=== PATIENT | female | born 1985 | race Caucasian/White ===

== ENCOUNTER 2017-06-28 17:34 | Inpatient (IN) | payer OTHER ==
[~2017-06-28] VITALS: Ht 167.6 cm; Wt 60.8 kg
--- NOTE | 2017-06-28 18:57 | ED PSYCHIATRIC COMPLAINT ---
History of Present Illness General Chief Complaint: ETOH/Drug Related Complaint Stated Complaint: ETOH AND POSSIBLE XANAX OVERDOSE Source: patient Exam Limitations: no limitations Vital Signs & Intake/Output Vital Signs & Intake/Output Vital Signs Date Time Temp Pulse Resp B/P B/P Pulse O2 O2 Flow FiO2 Mean Ox Delivery Rate 07/01 0642 98.2 60 20 138/74 99 Room Air 06/30 2135 98.7 63 20 140/84 98 Room Air 06/30 2107 63 140/84 06/30 1501 98.8 78 20 118/78 95 Room Air ED Intake and Output 07/01 0000 06/30 1200 Intake Total 1680 Output Total Balance 1680 Intake, IV 280 Intake, Oral 1400 Number 0 Bowel Movements Triage Note: 32 YEAR OLD FEMALE TO ER WITH HER PARENTS, PT NOTED TO BE LETHARGIC UNABLE TO KEEP HER EYES OPEN, SPEECH SLURRED, MOM STATES THAT PT AND HER WERE GOING TO VISIT FAMILY WHEN PT STARTED TO SLUR HER WORDS AND NOT ACTING RIGHT, PT HAS HISTORY OF DEPRESSION, DENIES SI/HI PER PARENTS. PT ADMITS TO XANAX USE TODAY AND MOM STATES THAT PT IS AN ALCHOLIC. PT RECENTLY MOVED DOWN FROM [place] DUE TO DIVORCE Triage Nurses Notes Reviewed? yes Onset: Abrupt Duration: hour(s): Timing: single episode today Severity: moderate, severe : No Patient currently breastfeeds: No HPI: 32-year-old female comes into emergency room by mom and dad after being intoxicated. Mom and dad report that the patient recently went through a divorce. She moved back in to their house April this past year. She was living in [place] previously. She has a history of EtOH abuse but has been increased significantly recently according to family. She reportedly drank alcohol and took some Xanax today. Mom had asked her if she wanted to go to their cousin's house with her. When she was in the car suddenly she became very confused and was slurring her words. She denies any suicidal or homicidal ideation. She has no previous attempts of suicide. Mom and dad report that she did not do this on purpose. They report that she has been more depressed recently. (Krzysztof Castro) Allergies Coded Allergies: sulfamethoxazole (From BACTRIM) (Intermediate, red rash 06/29/17) trimethoprim (From BACTRIM) (Intermediate, red rash 06/29/17) Reconcile Medications Escitalopram Oxalate 10 MG TABLET 1 TAB PO DAILY ANXIETY (Reported) (Holly ROWAN,Farideh) Past History Travel History Traveled to [place] past 21 day No Medical History Any Pertinent Medical History? 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 No (Krzysztof Castro) Review of Systems Review of Systems Constitutional: Reports: no symptoms. EENTM: Reports: no symptoms. Respiratory: Reports: no symptoms. Cardiovascular: Reports: no symptoms. GI: Reports: no symptoms. Genitourinary: Reports: no symptoms. Musculoskeletal: Reports: no symptoms. Skin: Reports: no symptoms. Neurological/Psychological: Reports: see HPI. Hematologic/Endocrine: Reports: no symptoms. Immunologic/Allergic: Reports: no symptoms. All Other Systems: Reviewed and Negative (Krzysztof Castro) Physical Exam Physical Exam General Appearance: sedated, mild distress, intoxicated Head: atraumatic Eyes: Bilateral: normal appearance. Ears, Nose, Throat: normal ENT inspection, hearing grossly normal Neck: normal inspection Respiratory: no respiratory distress Cardiovascular: regular rate/rhythm Extremities: normal range of motion Neurological/Psychiatric: depressed affect, arousable Appearance/Memory/Insight: disheveled Behavoir/Eye Contact/Speech: cooperative Thoughts/Hallucinations: no apparent hallucination Skin: intact, normal color, warm/dry SAD PERSONS Done? patient not suicidal (Krzysztof Castro) Progress Differential Diagnosis: dementia, drug intoxication, drug overdose, drug withdrawal, electrolyte abnormality, depression, anxiety, bipolar, borderline personality, Plan of Care: Orders Procedure Date/time Status CBC WITHOUT DIFFERENTIAL 07/01 599 Complete BASIC ELECTROLYTES PLUS BUN&CR 07/01 06 Complete SOCIAL WORK CONSULT 06/30 UNK Active Current Medications Sig/Louie Start time Last Medication Dose Stop Time Status Admin Lorazepam 1.5 MG Q6 07/01 1200 AC (Ativan) Cyanocobalamin 1,000 MCG DAILY 06/30 1752 AC 07/01 (Vitamin B12) 0831 Multivitamins 1 TAB DAILY 06/30 1056 AC 07/01 (Theragran Vitamins) 0831 Enoxaparin Sodium 40 MG DAILY 06/30 1000 AC 07/01 (Lovenox) 0834 Folic Acid 1 MG DAILY 06/30 1000 AC 07/01 (Folic Acid) 0831 Thiamine HCl 100 MG DAILY 06/30 1000 AC 07/01 (Vitamin B1) 0834 Acetaminophen 650 MG Q6P PRN 06/29 2345 AC 07/01 (Tylenol) 0833 Lorazepam 0 Q1P PRN 06/29 2245 AC 06/30 (Ativan) 2123 Laboratory Tests 07/01/17 0622: Anion Gap 10, Estimated GFR > 60, BUN/Creatinine Ratio 16.0, CBC w Diff NO MAN DIFF REQ, RBC 3.43 L, MCV 100.5 H, MCH 34.6 H, RDW 12.6, MPV 7.4, Gran % 65.0 , Lymphocytes % 22.0, Monocytes % 11.2 H, Eosinophils % 1.4, Basophils % 0.4, Absolute Granulocytes 2.5, Absolute Lymphocytes 0.8 L, Absolute Monocytes 0.4, Absolute Eosinophils 0.1, Absolute Basophils 0, PUBS MCHC 34.4 9:04 PM [facility] ALCOHOL WITHDRAWAL. (Farideh Barrera MD) Hand-Off Endorsed To: Ghanshyam Eric MD Pending: other (clically sober, re-evaluation) (Krzysztof Castro) Comments: 06/29/2017 7:30:31 AM patient had an uneventful emergency department stay overnight. Patient signed out to Dr. Patterson. Crisis evaluation pending as the patient has requested evaluation due to SI. (Ghanshyam Eric MD) Hand-Off Endorsed To: Farideh Barrera MD Endorsed Time: 1500 Pending: consult (crisis for SI concerns of mom), other (CIWA) (Josh Patterson MD) Departure Departure Disposition: STILL A PATIENT Condition: Stable Clinical Impression Primary Impression: ETOH abuse Referrals: Navya Noel MD (PCP/Family) Departure Forms: Customer Survey General Discharge Information (Krzysztof Castro) Departure Time of Disposition: 2118 Admission Note Spoke With: Gerard MD,Sitalakshmi Documentation of Exam: Documentation of any treatments & extenuating circumstances including Concerns Regarding Discharge (functional status, medication knowledge or non-compliance, living conditions, etc.) that warrant an admission rather than observation: [ CIWA MONITORING, ATIVAN TAPER, SEIZURE PRECAUTIONS, CRISIS CONSULTATION FOLLOW THROUGH ON MEDICAL FLOORS, COUNSELLING FOR ILLICIT SUBSTANCE ABUSE] (Holly ROWAN,[facility])
[2017-06-28 18:59] LABS: ABSOLUTE BASOPHIL COUNT 0 /CUMM (0.0-0.2); ABSOLUTE EOSINOPHIL COUNT 0.1 /CUMM (0.0-0.7); ABSOLUTE GRANULOCYTE CT 1.7 /CUMM (1.4-6.5); ABSOLUTE LYMPH COUNT 2.1 /CUMM (1.2-3.4); ABSOLUTE MONOCYTE COUNT 0.7 /CUMM (0.10-0.60); EOSINOPHIL % 1.3 % (0-5); GRANULOCYTE % 37.1 % (42.2-75.2); HEMATOCRIT 39.6 % (37-47); MEAN CORPUSCULAR HGB 34.3 PG (27.0-31.0); MEAN CORPUSCULAR HGB CONC 34.3 G/DL (33.0-37.0); MEAN PLATELET VOLUME 6.5 FL (7.4-10.4); PLATELET COUNT 315 /CUMM (130-400); RBC DISTRIBUTION WIDTH 12.9 % (11.5-14.5); RED BLOOD CELL CT 3.96 /CUMM (4.20-5.40); WHITE BLOOD CELL COUNT 4.5 /CUMM (4.8-10.8)
[2017-06-29] VITALS (7 sets, daily range): BP systolic 103–135; BP diastolic 63–93
--- NOTE | 2017-06-29 17:49 | ED PSYCH CRISIS CONSULTATION ---
Crisis Consult Basic Assessment Date of Consult: 06/29/17 Responsible Person/Accompanied By: Brought in by parents Insurance Authorization: Insurance #1: Insurance name: [employer] Phone number: Policy number: [id number] Group number: Authorization number: ED Provider: Patient's ED Provider: Farideh Barrera MD Primary Care Physician: Patient's PCP: Navya Noel MD PCP's Current Psychiatrist: None Chief Complaint: ETOH/Drug Related Complaint Patient's Quote: "Alcohol, drinking too much." Present Illness: The patient is a 32 year old, , female presenting to the ED intoxicated. The patient was not able to be evaluated last evening, as her BAL was .585. She was held over and evaluated this afternoon, after she was breathalyzed and she was appropriate for evaluation. The patient reports that she has a problem with alcohol and drank more yesterday, however she is not clear why. She was 3 months ago, after being for 7 years. She states that she got in [place] and moved to [place] in April of 2015, because that is where her was from. The patient reports that she was lonely and not working while in [place] and her drinking increased. She states that she moved back to [place] with her parents (about 2-3 months ago) and has been trying to find work. 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 She states that her parents have been financially supporting her. She reports that she has been depressed and anxious, rating his depression a 6 out of 10, 10 being most severe and her anxiety an 8 or 9 out of 10, 10 being the most severe. The patient denies any current or history of SI / HI / AH / VH. She reports that she was in treatment for anxiety, in [place], however did not obtain a provider, while she was living in [place]. She denies any history of trauma or abuse. She reports a distant history of alcohol abuse, for which she received treatment at [facility] , 13 years ago. She states that until she moved to [place] in 2014 she only drank on the weekends. She states that for the last year she has been drinking "4 vodka drinks daily." She also admits to using Cannabis " a few times a week," Suboxone ( not prescribed) and Xanax (0.5 mg daily, not prescribed). She states that she wants to stop drinking and is willing to be admitted for a medical detox. met with her mother, Tamiko Hughes ([phone]), for collateral information. Tamiko reports that the patient has a "drinking problem." Tamiko reports that the patient has been living with them since May 05, 2017 and that they have discussed her excess drinking. Tamiko states that she believed that the patient had stopped drinking, however it is clear that she was hiding it. Tamiko states that the patient has made 1 suicidal statement, about 2 months ago, when she was still living in [place]. Tamiko reports the patient made a comment about driving her car off the road. Tamiko states that the patient has not made any suicidal statements since and she is not concerned about her hurting herself or others. Liz states that there are other family members that have substance abuse issues. Tamiko is very concerned about the patients drinking and would like her to get into treatment. Patient's Address: [address] [place] [address] Other Phone Number: Who Do You Live With? 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 Physical Limitations (Interventions): The patient does appear to have some symptoms of withdrawal- discussed with Dr. Barrera and [facility] Psychiatric Treatment History Psych Treatment Psychiatric Treatment Yes Inpatient Treatment No Outpatient Treatment Yes Location of Treatment OP psychiatrist in [place] Reason for Treatment anxiety and depression Dates of Treatment Unclear Response to Treatment The patient states that it was helpful until she moved and did not find a new provider. Diagnosis by History: N/A Substance Use/Abuse History Drug Use/Abuse 1 Substances Used/Abused Yes Substance Used/Abused Alcohol First Use 14 years old Last Used Yesterday; 06/28/2016 How much used/taken "4 vodka drinks" How often Daily For how long 1 year Route of use oral Drug Use/Abuse 2 Substances Used/Abused Yes Substance Used/Abused Marijuana First Use Unclear Last Used "2 days ago." How much used/taken Unclear How often " a few times a week." For how long unclear Route of use inhalation Drug Use/Abuse 3 Substances Used/Abused Yes Substance Used/Abused Benzodiazepines (Xanax) First Use Unclear Last Used Unclear How much used/taken "0.5 mg" How often Daily For how long Unclear Substance Abuse Treatment Substance Abuse Treatment Past Substance Abuse [place] Yes Inpatient Treatment No Outpatient Treatment Yes Location of Treatment [facility] Reason for Treatment alcohol abuse Dates of Treatment 2012 Response to Treatment She states that she was able to control her drinking and only drink on the weekends, up until she moved to [place]. Comments: She does report taking Suboxone that is not prescribed for her. Current Mental Status Mental Status Orientation: Person, Place, Situation Affect: Anxious Speech: WNL Neuro-vegetative: WNL Appearance Appearance- Dress/Hygiene: The patient was sitting in the chair, in hospital attire, unkempt and disheveled. She appeared to be tremulous throughout the evaluation. Behaviors Thought Process: WNL Thought Content: WNL Memory: WNL Insight: Fair SI/HI Risk Assessment Past Suicidal Ideation/Attempts Yes (Per patients mother) Current Suicidal Ideation/Att No (Pt. denies) Past Homicidal Ideation/Att: No (Pt. denies) Current Homicidal Ideation/Attempts No (Pt. denies) Degree of Intent: None Danger To: N/A Risk Factors: high anxiety/distress, substance abuse Lethality Ratin PTSD Checklist PTSD Done? patient declined (Denies trauma and abuse hx.) ED Management Sitter: Yes Restraints: No DSM5/PS Stressors/Medical Prob Diagnosis' (DSM 5, Stressors, Medical): F32.9 Unspecified Depressive Disorder F41.9 Unspecified Anxiety Disorder F10.20 Alcohol Use Disorder, Severe F12.20 Cannabis Use Disorder F13.20 Sedative, Hypnotic and Anxiolytic related Disorder- Xanax Medical: Unremarkable Stressors: Recent Divorce, unemployment, financial Current GAF: 30 Comments: N/A Departure Disposition Psych Medical Clearance Date: 06/29/17 Medically Cleared at: 1645 Time Started: 1700 Time Ended: 1745 Psychiatrist Consulted: Dr. Butler Date Disposition Established: 06/29/17 Time Disposition Established: 1999 Plan for Disposition - Modality: Medical Admission (Detox) Facility: [facility] Contact: N/A Telephone: N/A Rationale for Disposition: The patient presented to the ED intoxicated. She does report some anxiety and depression. She denies any current SI / HI / AH / VH. She does want to stop drinking and is agreeable to a medical admission for detox. Case discussed with Dr. Butler and she is in agreement with a medical admission for detox. Dr. Butler recommends a psychiatric consult, once she is admitted. Dr. Butler states that if the patient wants to leave AMA, she should not be allowed to leave, until it is discussed with her inpatient provider. Additional Instructions: N/A Referrals Navya Noel MD (PCP/Family)
[2017-06-30] VITALS: BP 120/62
--- NOTE | 2017-06-30 00:37 | History & Physical ---
Gen Krishnachapisanderson 06/30/17 0037: General Information and HPI MD Statement: I have seen and personally examined MARCIA RENDON and documented this H&P. The patient is a 32 year old F who presented with a patient stated chief complaint of alcohol intoxication Source of Information: patient Exam Limitations: no limitations History of Present Illness: Ms Rendon is a 32 year old woman w/ a PMHx of opioid abuse on prescribed Suboxone in the past, anxiety, depression was brought in by her parents when she was found to be intoxicated and had slurred speech on 06/28/2016. Blood alcohol level was found to be 585 MG/DL at the time of presentation. She has been drinking alcohol since the age of 14 years, and became increasingly dependent on alcohol use recently. She drinks approximately 4-5 drinks of vodka per day, and the last drink was the day of admission. After being for 7 years, which ended recently she started drinking more alcohol in despair. She complained of increasing tremors, and anxiety in the recent past, which she identifies them as limiting factors for an active work life. She was never admitted to hospital for alcohol detox program, or had any withdrawal seizures, nor was intubated in the past. She reported to have been in a alcohol rehabilitation program. Reported vague abdominal discomfort in the suprapubic area, but did not have any dysuria or back pain. She did not have any shortness of breath, palpitations, or chest pain. No tim, brbpr. No SI/HI. She also had chronic opioid abuse many years ago, after which she was on prescribed Suboxone while she was in [place] around 2016, and has been using leftover medications up until recently. She also uses Macrobid for chronic UTI. She currently lives with her parents in [place] after she was . Allergies/Medications Allergies: Coded Allergies: sulfamethoxazole (From BACTRIM) (Intermediate, red rash 06/29/17) trimethoprim (From BACTRIM) (Intermediate, red rash 06/29/17) Home Med list Escitalopram Oxalate 10 MG TABLET 1 TAB PO DAILY ANXIETY (Reported) Compliance With Home Meds: UNKNOWN Past History Travel History Traveled to [place] past 21 day No Medical History Blood Transfusion Hx: No Neurological: NONE EENT: NONE Cardiovascular: NONE Respiratory: NONE Gastrointestinal: NONE Hepatic: NONE Renal: NONE Musculoskeletal: NONE Psychiatric: depression Endocrine: NONE Blood Disorders: NONE Cancer(s): NONE SENIOR QA TESTER/Reproductive: NONE Isolation History: Standard Surgical History Surgical History: non-contributory Past Family/Social History Family History Relations & Conditions if any Relation not specified for: *No pertinent family history Psychosocial History Smoking Status: Current Everyday Smoker ETOH Use: alcoholic Illicit Drug Use: denies illicit drug use Functional Ability ADLs Independent: dressing, eating, toileting, bathing. Ambulation: independent IADLs Unknown: shopping, housework, finances, food prep, telephone, transportation, medication admin. 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 Denies: chills, fever. EENTM: Denies: blurred vision. Cardiovascular: Denies: chest pain. Respiratory: Denies: cough, short of breath. GI: Denies: abdominal pain, melena, bloody stool. Genitourinary: Denies: dysuria. Musculoskeletal: Denies: back pain. Skin: Denies: change in skin color. Neurological/Psychological: Denies: anxiety. Hematologic/Endocrine: Denies: bruising. Exam & Diagnostic Data Last 24 Hrs of Vital Signs/I&O Vital Signs Date Time Temp Pulse Resp B/P B/P Pulse O2 O2 Flow FiO2 Mean Ox Delivery Rate 06/30 0054 98.1 80 18 120/62 97 Room Air 06/30 0000 98.1 80 18 120/62 06/29 2302 97.6 84 18 122/63 / 2301 97.6 84 18 122/63 97 Room Air Room Air 06/29 2133 97.5 86 18 126/73 97 Room Air Room Air 06/29 2132 97.5 86 18 126/73 / 1930 98.8 86 18 126/84 98 Room Air Room Air 06/29 1929 98.8 86 18 126/84 / 1711 93 18 135/76 / 1631 98.5 93 20 135/76 97 Room Air 06/29 1447 99.0 88 20 122/79 96 Room Air 06/29 1241 97.0 82 16 103/66 /02 1231 98.4 82 18 103/66 97 Room Air 06/29 1036 98.0 70 18 100/56 98 Room Air 06/29 0911 97.4 84 18 120/93 96 Room Air 06/29 0910 97.4 84 18 120/93 / 0757 98.0 84 18 100/62 98 Room Air Physical Exam General Appearance Alert, Oriented X3, Cooperative, No Acute Distress Skin No Rashes, No Breakdown Skin Temp/Moisture Exam: Warm/Dry Sepsis Skin Exam (color): Normal for Ethnicity, no spider angimata HEENT Atraumatic, PERRLA, EOMI Neck Supple, No JVD Lymphatic Cervical nl Cardiovascular Regular Rate, Normal S1, Normal S2 Lungs Clear to Auscultation, Normal Air Movement Abdomen Normal Bowel Sounds, Soft, No Tenderness Neurological Normal Gait, Normal Speech, Strength at 5/5 X4 Ext, Normal Tone, Sensation Intact, Cranial Nerves 3-12 NL, Reflexes 2+, tremors + Extremities No Clubbing, No Cyanosis, No Edema, Normal Pulses Vascular Pulses Symmetrical Last 24 Hrs of Labs/Markus: 06/29/17 1851: Anion Gap 9, Estimated GFR > 60, BUN/Creatinine Ratio 23.0, Glucose 158 H, Calcium 9.0, Total Bilirubin 0.7, AST 15 L, ALT 26, Alkaline Phosphatase 69, Troponin I < 0.01, Total Protein 6.7, Albumin 3.8, Globulin 2.9, Albumin/ Globulin Ratio 1.3, CBC w Diff NO MAN DIFF REQ, RBC 3.90 L, MCV 86.7, MCH 28.5, RDW 15.6 H, MPV 10.3, Gran % 54.3, Lymphocytes % 24.4, Monocytes % 15.3 H, Eosinophils % 5.6 H, Basophils % 0.4, Absolute Granulocytes 1.8, Absolute Lymphocytes 0.8 L, Absolute Monocytes 0.5, Absolute Eosinophils 0.2, Absolute Basophils 0, PUBS MCHC 32.9 L Assessment/Plan Assessment: Ms Rendon is a 32 year old woman w/ a PMHx of opioid abuse on prescribed Suboxone in the past, anxiety, depression, alcohol abuse is being admitted to general medicine floor for alcohol detox. At the time of [id number] 97.2 pulse rate 82, respiration 20, blood pressure 129/82, pulse ox 92% on room air. On examination, she was comfortable however she was very anxious and had tremors likely from alcohol withdrawal. Pertinent lab findings: WBC 4.5 (leukopenia), hemoglobin 13.6, MCV 102 ( macrocytosis), platelets 315. Electrolytes-sodium 146, potassium 4.4, anion gap 17 (likely from alcohol), BUN 12, serum creatinine 0.5. AST 110, ALT 47 ( consistent with alcohol use, deficiency of PPO4), alkaline phosphatase 97, albumin 4.5, INR was not checked. Urine test was negative. Urine toxicology did not reveal any opiates, methadone, benzodiazepines, cocaine , cannabis. She did have elevated levels of serum alcohol 585 MG/DL. She is being admitted for alcohol detox, and needs to be on it her closely for severe alcohol withdrawal symptoms using CINM. She also has several mental health issues, for which psychiatry has been contacted, who would make further recommendations. At this time, she has laboratory findings consistent with alcohol use for which she need to be monitored, and have a discussion about quitting alcohol. She does not have any signs of liver cirrhosis, or variceal bleeding at this time, nor is there any need for working up. If she has any worsening liver function, would pursue imaging, otherwise would treat it as alcohol detox. Plan: #1 alcohol detox- Admit the patient to general medicine floor, and monitor closely for withdrawal symptoms. Since she has heavy alcohol use, and there is a possibility of severe withdrawls in the next 24-48hrs. She should be treated w/ ativan as per [facility] protocol which would enable the treatment w/ iv ativan as needed. She should also be treated w/ scheduled doses of ativan 2mg q6, which should be tapered in the next 24-48 hrs. #2 nutrition- She has to be started on banana bag, and soon be transitioned to multivitamin. She should also get folate, and vitamin B12 for her macrocytosis. She doesnt have any other causes that can cause macrocytosis, in her case. #3 Mental health- She doenst have any SI/HI at this time. She would benefit from a formal psychiatry consultation, to see if she would need any medication. Till that time , her meds are on hold. #4 Opiate abuse- Watch for any withdrawl symptoms. Utox did not have any opiates. Housekeeping- 1. DVT PPx- sc lovenox 2. Full code 3. Regular diet. 4. Med rec- done. 5. Pain pathway- tylenol for pain. Avoid opiates, and NSAIDs. As Ranked By This Provider Problem List: 1. ETOH abuse Core Measures/Misc (03/14) Acute Coronary Syndrome ACS Diagnosis: No Congestive Heart Failure Congestive Heart Failure Diagnosis No Cerebrovascular Accident CVA/TIA Diagnosis: No VTE (View Protocol) VTE Risk Factors No risk factors No Mechanical VTE Prophylaxis d/t N/A MechProphylax Ordered No VTE Pharm Prophylaxis d/t NA PharmProphylax ordered Sepsis (View protocol) Sepsis Present: No Gerard ROWAN, [facility] 06/30/17 0726: Attending MD Review Statement Attending Statement Attending MD Statement: examined this patient, discuss w/resident/PA/FIBERGLASS FABRICATOR, agreed w/resident/PA/FIBERGLASS FABRICATOR, reviewed images, amended to note Attending Assessment/Plan: 32 yo F with h/o alcohol abuse, opiate dependence previously on suboxone, anxiety, depression, was brought in by family in an intoxicated state. She was found to be confused and had slurring of speech. Her alcohol level was noted to be 585 on ER arrival on 06/28/17. Drinking since age 14, 4-5 drinks of vodka daily. Was living with at [place] but recently got and now lives with parents. No SI or HI. Denies previous DT's or withdrawal seizures. She used to follow up with Dr. Valdes ([place]) for opiate dependence and was being prescribed suboxone. She reports having quite a few left from prior prescriptions and has been using these recently. Denies any other drug use. Vitals stable. Exam: tremulous, dry mucous membranes, otherwise unremarkable. Labs: macrocytic anemia with WBC 4.5, Na 146, AG 17, AST 110, Utox negative. Alcohol 585. Assessment and plan: 1. Alcohol withdrawal 2. Depression, denies SI 3. Opiate dependence previously on suboxone 4. Chronic UTI - Admit to general medicine - CIWA protocol - IV ativan per CIWA - PO ativan 2 mg Q6 - Banana bag MVI, thiamine, folic acid - Psych and social work consult - Check TSH, free T4, B12, folic acid - Not sure if she really needs to be on macrobid hold for now - Check urinalysis - Repeat BEP today - Resume anti-depressant medication based on Psych recs - patient was on lexapro. - Please repeat EKG. DVT ppx Lovenox. Full code.
[2017-06-30] MEDS ORDERED: ESCITALOPRAM OX10 MG PO (00:53)
[2017-06-30 00:54] VITALS: BP 120/62
[2017-06-30 06:38] VITALS: BP 120/60
--- NOTE | 2017-06-30 07:27 | Admission Certification ---
Admission Certification Certification Statement - As attending physician, I certify that at the time of - admission, based on clinical presentation, severity of - symptoms, need for further diagnostic testing and - therapeutic interventions, and risk of adverse outcomes - without in-hospital treatment, in my clinical assessment, - this patient requires an acute hospital stay for a minimum - of two nights or longer. I have also considered psychsocial - factors such as support system, advanced age, financial - issues, cognitive issues, and failed out-patient treatments, - past re-admission history, safety of patient, and lack of - compliance as applicable. Specific rationale supporting this admission is: Alcohol withdrawal
[2017-06-30 08:37] LABS: ABSOLUTE BASOPHIL COUNT 0 /CUMM (0.0-0.2); ABSOLUTE EOSINOPHIL COUNT 0.1 /CUMM (0.0-0.7); ABSOLUTE GRANULOCYTE CT 1.9 /CUMM (1.4-6.5); ABSOLUTE MONOCYTE COUNT 0.4 /CUMM (0.10-0.60); BASOPHIL % 0.6 % (0.0-2.0); GRANULOCYTE % 54.3 % (42.2-75.2); MEAN CORPUSCULAR HGB 34.8 PG (27.0-31.0); MEAN CORPUSCULAR HGB CONC 34.7 G/DL (33.0-37.0); MEAN CORPUSCULAR VOLUME 100.1 FL (81.0-99.0); MEAN PLATELET VOLUME 6.9 FL (7.4-10.4); PLATELET COUNT 224 /CUMM (130-400); RBC DISTRIBUTION WIDTH 13.2 % (11.5-14.5); RED BLOOD CELL CT 3.43 /CUMM (4.20-5.40); WHITE BLOOD CELL COUNT 3.4 /CUMM (4.8-10.8)
[2017-06-30 08:43] LABS: HEMATOCRIT 34.4 % (37-47)
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
[2017-06-30 15:01] VITALS: BP 118/78
[2017-06-30 21:07] VITALS: BP 140/84
[2017-06-30 21:35] VITALS: BP 140/84
[2017-07-01] VITALS (7 sets, daily range): BP systolic 118–148; BP diastolic 74–86
[2017-07-01 08:17] LABS: ABSOLUTE BASOPHIL COUNT 0 /CUMM (0.0-0.2); ABSOLUTE EOSINOPHIL COUNT 0.1 /CUMM (0.0-0.7); ABSOLUTE GRANULOCYTE CT 2.5 /CUMM (1.4-6.5); ABSOLUTE LYMPH COUNT 0.8 /CUMM (1.2-3.4); ABSOLUTE MONOCYTE COUNT 0.4 /CUMM (0.10-0.60); BASOPHIL % 0.4 % (0.0-2.0); EOSINOPHIL % 1.4 % (0-5); HEMATOCRIT 34.5 % (37-47); MEAN CORPUSCULAR HGB 34.6 PG (27.0-31.0); MEAN CORPUSCULAR HGB CONC 34.4 G/DL (33.0-37.0); MEAN CORPUSCULAR VOLUME 100.5 FL (81.0-99.0); MEAN PLATELET VOLUME 7.4 FL (7.4-10.4); PLATELET COUNT 222 /CUMM (130-400); RBC DISTRIBUTION WIDTH 12.6 % (11.5-14.5); RED BLOOD CELL CT 3.43 /CUMM (4.20-5.40); WHITE BLOOD CELL COUNT 3.8 /CUMM (4.8-10.8)
--- NOTE | 2017-07-01 09:07 | PN- Att Addend ---
Attending Addendum Attending Brief Note Patient seen and examined. She still requesting Suboxone despite me counseling her at length that this has to be done on an outpatient basis. We are tapering the Ativan and today is 1.5mg every 6 and the plan will be for tomorrow 1mg every 6. Awaiting psych evaluation and will follow-up.
--- NOTE | 2017-07-01 10:48 | Cons- Psychiatry ---
Psychiatric Consult Date of Consult: 07/01/17 Reason for Consult: Alcohol use disorder History of Present Illness: 32 F presents to the ED 06/28/17 @ 1744 with her parents, with a CC of sedation due to Xanax, alcohol and Suboxone abuse. The patient recently moved from [place] after her divorce on 06/25/17, where she had lived with her ex- for approx. one year. 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 History of anxiety, treated until recently with Xanax. As of 07/01/17 @ 0823: Lorazepam 2 mg PO q 6 hours. She has received 11 mg in the last 24 hours. Last CIWA at 0000 was 2 VS @ 0642: 138/74, 60HR, 98.2 oral, 20RR, 99% RA, pain 0/10. EKG on 06/30/17 is abnormal. The patient is currently not in any distress. CT CROP OR LIVESTOCK TENANT FARMER Aware reports for the patient under her present name or her former name ( Reshma): 04/21/17 diazepam 5 mg #9 for 3 days by Raheem Bustamante ME 12/12/15 alprazolam 0.25 mg #30 for 10 days by Aissatou Arboleda CO Collateral discussion with her former Suboxone provider, Dr. Kaya Valdes, today, , with signed ANGELIQUE by the patient: She has not seen the patient in over a year since she moved to [place], and thus has no current prescriptions for the patient. She will be happy to discuss past treatment if necessary. [place] [address] [place] [address], Fax. Allergies: Coded Allergies: sulfamethoxazole (From BACTRIM) (Intermediate, red rash 06/29/17) trimethoprim (From BACTRIM) (Intermediate, red rash 06/29/17) Addendum Note Addendum PSYCHIATRY CONSULT PRACTICE NOTE DATE: August 15, 2013 MANAGING OPIATE DETOX AND WITHDRAWAL Version: 1.0 TOPIC: Managing opiate detox and withdrawal for medical and surgical inpatients; patient not currently on methadone or partial opiate agonist (buprenorphine- Naltrexone/Suboxone). Formulation: The patient presents with recent history of opiate use, such as heroin, street-obtained pharmaceuticals, and/or prescription drug abuse. There may be competing withdrawals from alcohol, benzodiazepines, amphetamines, or other substances. If the patient is currently on methadone therapy, verify current dosing with the clinic, determine if there is a taper schedule in place and continue with the out-patient plan. Monitor EKG for arrhythmia. Plan: Our goal is to minimize withdrawal signs and symptoms using the OOWS/SOWS screening tool, appropriate medication therapy and clinical judgment: * Objective Opioid Withdrawal Scale and the Subjective Opioid Withdrawal Scale ( OOWS/SOWS), as currently employed on [facility]. These scales are each on one side of a single sheet of paper (Appendix A). * Opiate detox protocol: * EKG - please monitor for arrhythmias and prolonged QTC. * Clonidine 0.1 mg PO every 4 hours as needed, if opiate withdrawal symptoms. Hold Clonidine for blood pressure less than 90 mmHg systolic, less than 60 mmHg diastolic or pulse less than 55 BPM. * Baclofen 10 mg PO every 6 hours, as needed, for muscle cramps. * Dicyclomine (Bentyl) 20 mg PO every 6 hours, as needed, for GI cramps. * Hydroxyzine (Atarax or Vistaril) 50 mg PO every 6 hours, as needed, for anxiety. * Ibuprofen 600 mg PO every 6 hours, as needed, for pain. * Multivitamin daily. * Taper benzodiazepines before discharge, or patient will be unable to start an Intensive Outpatient Psychiatry program (IOP). Past History Past Medical History Neurological: NONE EENT: NONE Cardiovascular: NONE Respiratory: NONE Gastrointestinal: NONE Hepatic: NONE Renal: NONE Musculoskeletal: NONE Psychiatric: alcohol dependence, anxiety, depression, opioid dependence, substance abuse Endocrine: NONE Blood Disorders: NONE Cancer(s): NONE SALES CONSULTANT/Reproductive: NONE Past Surgical History Surgical History: non-contributory Psychosocial History Strengths/Capabilities: The patient appears to have supportive parents. She states that she is motivated for treatment. Physical Limitations (Interventions): 07/01/17: Current opiate and alcohol withdrawal symptoms. Psychiatric Treatment History Psych Treatment Psychiatric Treatment Yes Inpatient Treatment No Outpatient Treatment Yes Location of Treatment OP psychiatrist in [place] Reason for Treatment anxiety and depression Dates of Treatment Unclear, but last visit at least one year ago, before moving to [place] Response to Treatment The patient states that it was helpful until she moved and did not find a new provider. Diagnosis: Alcohol use disorder Opiate use disorder Benzodiazepine use disorder Substance-induced mood disorder R/O HEATHER R/O MDD Risk Factors: high anxiety/distress, substance abuse Substance Use/Abuse History Drug Use/Abuse Substances Used/Abused Yes Substance Used/Abused Benzodiazepines (Xanax) First Use Unclear Last Used Unclear How much used/taken "0.5 mg" How often Daily For how long Unclear Route of use inhalation Substance Abuse Treatment Substance Abuse Treatment Past Substance Abuse TX Yes Inpatient Treatment No Outpatient Treatment Yes Location of Treatment [facility] Reason for Treatment alcohol abuse Dates of Treatment 2012. 07/01/17: She reports begin in the same program for six months when she Response to Treatment She states that she was able to control her drinking and only drink on the weekends, up until she moved to [place]. Assessment/Plan Mental Status Orientation: Person, Place, Situation Affect: Constricted Speech: WNL Neuro-vegetative: Sleep Disturbance Mental Status Exam: A+OX4 Denies AH, VH, but endorses tactile in the form of "Tinglies" on her legs. Past history of visual disturbances while drinking. Denies history of seizure, denies history of delirium tremens AEB ICU withdrawl from alcohol. She denies SI, HI or history of suicide attempt. Depression 01/04; denies helplessness, hopelessness, worthlessness, but endorses guilt feeling for drinking. She reports anxiety since she was a child, but not treated until age 15, and then with Xanax. 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 Kaya Valdes in [place]. the patient drinks 4-7 drinks of vodka daily, but the size of these drinks can range up to a Gatorade bottle. She has not seen her Suboxone provider for over a year, and has been using "leftover" drug and gettin git from her sister. She started on Lexapro from her mother's prescription, but is now being seen by her PCP for this. Lab Results: Laboratory Tests 07/01 621 Chemistry Sodium (137 - 145 mmol/L) 135 L Potassium (3.5 - 5.1 mmol/L) 3.7 Chloride (98 - 107 mmol/L) 101 Carbon Dioxide (22 - 30 mmol/L) 24 Anion Gap (5 - 16) 10 BUN (7 - 17 mg/dL) 8 Creatinine (0.5 - 1.0 mg/dL) 0.5 Estimated GFR (>60 ml/min) > 60 BUN/Creatinine Ratio (7 - 25 %) 16.0 Hematology CBC w Diff NO MAN DIFF REQ WBC (4.8 - 10.8 /CUMM) 3.8 L RBC (4.20 - 5.40 /CUMM) 3.43 L Hgb (12.0 - 16.0 G/DL) 11.9 L Hct (37 - 47 %) 34.5 L MCV (81.0 - 99.0 FL) 100.5 H MCH (27.0 - 31.0 PG) 34.6 H RDW (11.5 - 14.5 %) 12.6 Plt Count (130 - 400 /CUMM) 222 MPV (7.4 - 10.4 FL) 7.4 Gran % (42.2 - 75.2 %) 65.0 Lymphocytes % (20.5 - 51.1 %) 22.0 Monocytes % (1.7 - 9.3 %) 11.2 H Eosinophils % (0 - 5 %) 1.4 Basophils % (0.0 - 2.0 %) 0.4 Absolute Granulocytes (1.4 - 6.5 /CUMM) 2.5 Absolute Lymphocytes (1.2 - 3.4 /CUMM) 0.8 L Absolute Monocytes (0.10 - 0.60 /CUMM) 0.4 Absolute Eosinophils (0.0 - 0.7 /CUMM) 0.1 Absolute Basophils (0.0 - 0.2 /CUMM) 0 PUBS MCHC (33.0 - 37.0 G/DL) 34.4 Diffential Diagnosis: Alcohol use disorder Opiate use disorder Benzodiazepine use disorder Substance-induced mood disorder R/O HEATHER R/O MDD Impression: The patient indicates that she is willing to stop alcohol and drug use and come to an IOP level of care. She lives in [place] with her parents, and has her own car. She would also like to start in a Suboxone program; she had her last dose two days ago, but it has not been prescribed for over a year. She is currently describing anergia, chills/hot flashes, POLANCO, body aches, and could benefit from symptomatic treatment. Please see the Opiate Detox Protocol in the chart and in the Addendum section above. We will get her an IOP intake appointment for next week. She will need to safely complete her alcohol detox benzodiazepine taper. Do not discharge the patient on benzodiazepines. The patient is under stress from her divorce being final on 06/25/17, but she denies suicidal ideation. Provisional Treatment Plan: PCP and current Lexapro prescriber: Navya Noel MD, [address] [place] [address], 1. Continue the alcohol detox taper protocol with a daily reduction in total dose of no more than 20%. 2. Continue CIWA and VS monitoring for S/S of withdrawal symptoms - alcohol. 3. Please use the Opiate Withdrawal protocol in the Addenedum to help with withdrawal symptoms. We are not able to initiate Suboxone therapy at this time in the hospital. 4. We will obtain a [facility] dual track intake appt. on 07/02/16, as they are closed today. 5. Caution with visitors, as she has been sourcing Suboxone from her sister, and may have her own supply at home. 6. Continue thiamine, folic acid and MVI. 7. Please review the EKG of 06/30/17.
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
[2017-07-02] VITALS: BP 122/99; BP 140/90
[2017-07-02 02:00] VITALS: BP 134/86
[2017-07-02 08:00] VITALS: BP 108/70; BP 116/71
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
--- NOTE | 2017-07-02 08:24 | PN- Housestaff ---
PablomarLucy crawford 07/02/17 0824: Subjective Follow-up For: Opiate Withdrawal Alcohol Withdrawal Subjective: Seen and examined patient this morning. Early this morning she was quite lethargic however around noon time she became more awake and alert and was oriented and was answering appropriately. Denies chest pain, shortness of breath, headaches, auditory or visual hallucinations, abdominal pain and bowel/ bladder symptoms. Review of Systems Constitutional: Denies: chills, diaphoresis, fever, malaise, weakness, unexplained weight loss. Cardiovascular: Denies: chest pain, edema, orthopena, palpitations, peripheral edema, syncope. Respiratory: Denies: cough, hemoptysis, orthopnea, short of breath, sputum production, stridor, wheezing. Objective Last 24 Hrs of Vital Signs/I&O Vital Signs Date Time Temp Pulse Resp B/P B/P Pulse O2 O2 Flow FiO2 Mean Ox Delivery Rate 07/02 1000 50 18 07/02 0900 56 18 07/02 0800 98.6 75 20 116/71 07/02 0800 98.6 75 20 108/70 97 Room Air 07/02 0200 61 18 134/86 07/02 0036 86 20 138/103 07/02 0000 Room Air 100% 07/02 0000 71 20 122/99 07/02 0000 97.4 72 18 140/90 100 Room Air 07/01 2221 98.8 74 20 148/86 07/01 2220 98.8 74 20 148/86 97 Room Air 07/01 2114 74 125/70 /04 1950 80 18 130/84 97 Room Air 07/01 1745 98.5 64 18 118/74 07/01 1745 98.5 64 18 118/74 98 Room Air 07/01 1436 98.2 74 18 130/78 98 Room Air 07/01 1313 100 134/72 Intake & Output 07/02 1600 05 0800 07/02 0000 Intake Total 280 480 Output Total 200 200 Balance 80 280 Intake, IV 40 40 Intake, Oral 240 440 Output, Urine 200 200 Patient 134 lb Weight Physical Exam General Appearance: Alert, Oriented X3, Cooperative, No Acute Distress Cardiovascular: Regular Rate, Normal S1, Normal S2 Lungs: Clear to Auscultation, Normal Air Movement Abdomen: Normal Bowel Sounds, Soft Extremities: No Edema Current Medications: Current Medications Sig/Louie Start time Last Medication Dose Route Stop Time Status Admin Acetaminophen 650 MG Q6P PRN 06/29 2345 AC 07/01 PO 0833 Baclofen 10 MG Q6PRN PRN 07/01 1215 AC PO Clonidine 0.1 MG FOUR TIMES A DAY PRN 07/01 1215 DC 07/02 PO 0036 Cyanocobalamin 1,000 MCG DAILY 06/30 1752 AC 07/02 PO 1122 Dicyclomine HCl 20 MG 4 TIMES/DAY PRN 07/01 1215 AC PO Enoxaparin Sodium 40 MG DAILY 06/30 1000 AC 07/02 SC 1122 Folic Acid 1 MG DAILY 06/30 1000 AC 07/02 PO 1122 Haloperidol 0.5 MG DAILY PRN 07/01 1600 DC 07/02 PO 0034 Hydroxyzine HCl 50 MG Q6 PRN 07/01 1215 DC 07/02 PO 0608 Ibuprofen 600 MG Q6P PRN 07/01 1215 AC PO Lorazepam 1 MG Q8 07/03 0600 AC PO 07/03 2201 Lorazepam 2 MG Q6 07/02 1200 DC IV Lorazepam 1 MG Q6 07/02 1200 CAN IV Lorazepam 1 MG Q6 07/02 1200 AC 07/02 PO 07/03 0601 1206 Lorazepam 2 MG Q6 07/02 0600 DC 07/02 PO 0535 Lorazepam 1.5 MG Q6 07/01 1200 DC 07/01 PO 2339 Lorazepam 0 Q1P PRN 06/29 2245 AC 07/02 IV 0811 Multivitamins 1 TAB DAILY 07/02 1000 DC PO Multivitamins 1 TAB DAILY 06/30 1056 AC 07/02 PO 1122 Thiamine HCl 100 MG DAILY 06/30 1000 AC 07/02 PO 1122 Last 24 Hrs of Lab/Markus Results Last 24 Hrs of Labs/Mics: Microbiology 07/01 2329 UPPER RESP: Surveillance Culture - RECD 07/01 2329 GI: Surveillance Culture - RECD Assessment/Plan Assessment: 32 woman PMH significant for opioid use disorder, alcohol use disorder, depression, and admission for alcohol and opiate withdrawal. Was found to be extremely agitated over night and attempted to leave the hospital, was transferred to ICU for closer monitoring and possible IV Ativan drip. She did not require the Ativan drip however and this morning she is more awake and in answering questions appropriately. Problem list: #AUD: * CIWA 19, 16, 6, 0, lot calmer this afternoon * Will taper Ativan to 1 mg every 6 today, and milligram every 8 tomorrow and 1 mg every 12 on Wednesday. Anticipating discharge for her on Wednesday with instructions to take 1 Ativan Wednesday evening and her final dose Wednesday morning. * Patient has an IOP appointment July 05 at 9:30 AM * psych and social evaluation * Social work consult * Called and spoke to her mother and updated her on her status. #h/o SWTAHI: * History of opiate use disorder, states that she was on Suboxone. * Her last follow-up with Suboxone clinic was 1.5 years ago in [place]. * Should be reevaluated by a certified provider as outpatient. * Was seen by psych inpatient today who recommended a medication regimen to control her withdrawal symptoms #Depression: * We'll continue Lexapro #DVT prophylaxis * Subcutaneous Lovenox #Patient is full code Problem List: 1. ETOH abuse 2. Alcohol use disorder Pain Ratin Pain Location: NA Pain Goal: Pain 4 or less Pain Plan: current regimen Tomorrow's Labs & Rationales: none required Tiana Suresh MD 07/02/17 1141: Attending MD Review Statement Attending Statement Attending MD Statement: examined this patient, discuss w/resident/PA/PRESS TECHNICIAN, agreed w/resident/PA/PRESS TECHNICIAN, discussed with family, reviewed EMR data (avail), discussed with nursing, reviewed images Attending Assessment/Plan: Overnight events noted. Pt became aggressively more agitated and confused requiring more Ativan and was subsequently transferred to the ICU. When I saw her today with the RN and the resident present she looks markedly better than when I saw her yesterday. She is still tremulous but less than before. She is much more logical today. She feels that all of the medication is contributing to her confusion. She is making a lot more sense and understands that we have to taper the Ativan and we are going to do that over the next 24-48 hours with the plan for discharge on Wednesday. She also gave me permission to talk to her mother and update her mother on all of her conditions. At this point I think we should decrease the amount of Ativan and I've spoken to the psych COUPLING MACHINE OPERATOR about it. We'll cut her down to 1 mg every 6hrs 4 doses then 1 mg every 8 hours 3 doses and by Wednesday she'll be on 1 mg twice a day. If she is stable and is not tremulous and not confused then, the plan will be to discharge on Wednesday morning with 2 pills of Ativan - 1 she'll take on Wednesday evening and one on Wednesday morning. I've spoken to the psych COUPLING MACHINE OPERATOR we'll set up an IOP appointment for her and the resident will update her mother with all of the above.
[2017-07-02] MEDS ORDERED: ATIVAN1 M1 PO (11:59)
[2017-07-02 12:00] VITALS: BP 104/78
--- NOTE | 2017-07-02 12:01 | Patient Discharge Instructions ---
Discharge Instructions General Discharge Information You were seen/treated for: Alcohol withdrawal Special Instructions: Please follow up with your Primary care doctor within two weeks of discharge You have an appointment at the Intensive Outpatient Program (IOP) on 07/05/17, at 9:30 AM, at [address] [place] [address], . Please bring photo ID and insurance card. Acute Coronary Syndrome Inclusion Criteria At DC or during hospital stay patient has or had the following: ACS DIAGNOSIS No Discharge Core Measures Meds if any: Prescribed or Continued at Discharge Meds if any: NOT Prescribed or Continued at Discharge Congestive Heart Failure Inclusion Criteria At DC or during hospital stay patient has or had the following: CHF DIAGNOSIS No Discharge Core Measures Meds if any: Prescribed or Continued at Discharge Meds if any: NOT Prescribed or Continued at Discharge Cerebrovascular accident Inclusion Criteria At DC or during hospital stay patient has or had the following: CVA/TIA Diagnosis No Discharge Core Measures Meds if any: Prescribed or Continued at Discharge Meds if any: NOT Prescribed or Continued at Discharge Venous thromboembolism Inclusion Criteria VTE Diagnosis No VTE Type NONE VTE Confirmed by (Test) NONE Discharge Core Measures - Per Current guidelines, there needs to be overlap - treatment for the first 5 days of Warfarin therapy. - If discharged on Warfarin prior to 5 days of - overlap therapy, the patient will need to be - assessed for post discharge needs including - *Post discharge parental anticoagulation - *Warfarin and/or parental anticoagulation education - *Follow up date to check INR post discharge At least 5 days overlap therapy as Inpatient No Meds if any: Prescribed or Continued at Discharge Note: Overlap Therapy is Warfarin and Anticoagulant Meds if any: NOT Prescribed or Continued at Discharge
--- NOTE | 2017-07-02 13:45 | PN- Psychiatry ---
Assessment/Plan Impression: We were asked to see the patient again yesterday in the afternoon, when she was trying to leave [facility]. The medical staff felt that she was not psychiatrically stable, and, indeed, she wanted to leave the hospital on foot in a severe winterstorm to find her sister, who had become stuck in her car, due to heavy snowfall. Dr. Suresh, attending, felt that the patient was exhibiting irrational decision making, and ordered her to stay. The patient elected to stay to complete treatment for alcohol and opiate (Suboxone) withdrawal. Later in the evening, the patient reported visual hallucinations and was transferred to the ICU for delirium. She was observed eating toilet paper and later reported that she was in [place], per the nursing notes. We did have a discussion with Dr. Suresh, attending MD, about tapering the lorazepam, as she found the patient much improved over yesterday. When I saw the patient later this afternoon, her CIWA scores had reduced from 10 -28 overnight to 2 at 1200 today. She was not frankly delirious, denied psychotic symptoms and was not suicidal. In the 24 hours preceding 07/02/17 @ 1005, she received lorazepam 30.5 mg both PO and IV, all but 6.5 via IV. Prior to that, she received 11 mg on 06/30/17, 5 mg on 06/29/17 and 5 mg on 06/28/17. CIWA from 1200: 7-0-0-28-08-31-19-19--36-08-84-16-16 -79-3-39-6-10 VS @ 1200 104/78, 53HR, 97.8, 20RR. We feel that the reduction in lorazepam from 30.5 mg to anything less than the previous days total will put the patient at risk for a recurrence for hallucinosis, delirium tremens or seizure. I have suggested a compromise, below. Suggestion: 1. Continue lorazepam alcohol detox taper. a. The patient should re-initiate the taper at a total daily dose of 12-16 mg daily, divided, a compromise between her daily total, 11.5 mg, on 06/30-07/01/17 and the subsequent larger dosing, 30.5 mg, on 07/01-07/02/17. b. Daily reduction by approximately 20% to off. c. Consider conversion to chlordiazepoxide/Librium before discharge, which has a longer half life, reducing the possibility of a withdrawal seizure. Lorazepam 1 mg is roughly equivalent to chlordiazepoxide 25 mg. d. The patient may enter the IOP program on a benzodiazepine taper and prescribed Suboxone. This has been explained to the patient, who verbalizes understanding that she may not self-medicate. 2. Aftercare planning: a. The patient has an intake appointment at [facility] dual-track Intensive Outpatient Program (IOP) on 07/05/17, at 9:30 AM, at [address] [place] [address], . She is to bring her photo ID and insurance card. b. The patient will present at [facility] to enroll in their Suboxone program, as is not currently accepting new patients in that program. [facility] Walk-In Evaluation Hours for outpatient Suboxone program and Intensive outpatient program are on a first come, first serve basis. Wednesday-Wednesday 8:30AM-11:00AM [address] [place] [address] Information on this program was given to the patient. She thinks that her sister is currently enrolled in their care. 3. Continue CIWA and VS monitoring for S/S of alcohol withdrawal symptoms. 4. Please use the Opiate Withdrawal protocol, in the Addendum of the initial consultation note, to help with opiate withdrawal symptoms. We understand that clonidine had been stopped, due to bradycardia. 5. Please reconsult if further matters arise. Psychiatry is signing off this case. Subjective Subjective: Sleepy, arousable, oriented to person, day, month, year, president but not place. she denies current VH or TH, but regarding tactile hallucinations, states , "I'm sure there will be." She reports that she had thought that alcohol detox would be easier. Her judgement and insight are currently intact. She denies SI or HI. She states that she has "a little bit of Suboxone left at home. I've been trying for every other day, but it makes me feel so sick." Objective Last 24 Hrs of Vital Signs/I&O Vital Signs Date Time Temp Pulse Resp B/P B/P Pulse O2 O2 Flow FiO2 Mean Ox Delivery Rate 07/02 1200 97.8 53 20 104/78 01/05 1200 97.8 53 20 104/78 98 Room Air 07/02 1000 50 18 07/02 0900 56 18 07/02 0800 98.6 75 20 116/71 07/02 0800 98.6 75 20 108/70 97 Room Air 07/02 0200 61 18 134/86 / 0036 86 20 138/103 / 0000 Room Air 100% 07/02 0000 71 20 122/99 / 0000 97.4 72 18 140/90 100 Room Air 07/01 2221 98.8 74 20 148/86 07/01 2220 98.8 74 20 148/86 97 Room Air 07/01 2114 74 125/70 /04 1950 80 18 130/84 97 Room Air 07/01 1745 98.5 64 18 118/74 07/01 1745 98.5 64 18 118/74 98 Room Air 07/01 1436 98.2 74 18 130/78 98 Room Air Intake & Output 07/02 1600 07/02 0800 07/02 0000 Intake Total 280 480 Output Total 200 200 Balance 80 280 Intake, IV 40 40 Intake, Oral 240 440 Output, Urine 200 200 Patient 134 lb Weight Physical Exam: Not performed Physical Exam General Appearance: no apparent distress, Sleepy Current Medications: Current Medications Sig/Louie Start time Last Medication Dose Route Stop Time Status Admin Acetaminophen 650 MG Q6P PRN 06/29 2345 AC 07/01 PO 0833 Baclofen 10 MG Q6PRN PRN 07/01 1215 AC PO Clonidine 0.1 MG FOUR TIMES A DAY PRN 07/01 1215 DC 07/02 PO 0036 Cyanocobalamin 1,000 MCG DAILY 06/30 1752 AC 07/02 PO 1122 Dicyclomine HCl 20 MG 4 TIMES/DAY PRN 07/01 1215 AC PO Enoxaparin Sodium 40 MG DAILY 06/30 1000 AC 07/02 SC 1122 Escitalopram Oxalate 10 MG DAILY 07/02 1258 AC PO Folic Acid 1 MG DAILY 06/30 1000 AC 07/02 PO 1122 Haloperidol 0.5 MG DAILY PRN 07/01 1600 DC 07/02 PO 0034 Hydroxyzine HCl 50 MG Q6 PRN 07/01 1215 DC 07/02 PO 0608 Ibuprofen 600 MG Q6P PRN 07/01 1215 AC PO Lorazepam 1 MG Q8 07/03 0600 AC PO 07/03 2201 Lorazepam 2 MG Q6 07/02 1200 DC IV Lorazepam 1 MG Q6 07/02 1200 CAN IV Lorazepam 1 MG Q6 07/02 1200 AC 07/02 PO 07/03 0601 1206 Lorazepam 2 MG Q6 07/02 0600 DC 07/02 PO 0535 Lorazepam 1.5 MG Q6 07/01 1200 DC 07/01 PO 2339 Lorazepam 0 Q1P PRN 06/29 2245 AC 07/02 IV 0811 Multivitamins 1 TAB DAILY 07/02 1000 DC PO Multivitamins 1 TAB DAILY 06/30 1056 AC 07/02 PO 1122 Thiamine HCl 100 MG DAILY 06/30 1000 AC 07/02 PO 1122
[2017-07-02 16:00] VITALS: BP 116/70
[2017-07-02] MEDS ORDERED: MACRODANTIN50 M1 PO (16:47)
[2017-07-02 21:27] VITALS: BP 120/70
[2017-07-03] VITALS (8 sets, daily range): BP systolic 94–120; BP diastolic 60–80
--- NOTE | 2017-07-03 17:03 | PN- Housestaff ---
See Addendum Subjective Follow-up For: Opiate Withdrawal Alcohol Withdrawal Subjective: Patient reports she did not sleep well overnight. She had a lot of anxiety, she felt as thought she wanted to "jump out of my skin" Review of Systems Constitutional: Reports: see HPI. Objective Last 24 Hrs of Vital Signs/I&O Vital Signs Date Time Temp Pulse Resp B/P B/P Pulse O2 O2 Flow FiO2 Mean Ox Delivery Rate 07/03 1714 98.7 83 20 100/62 97 Room Air 07/03 1559 98.8 68 18 104/60 98 Room Air 07/03 1400 98.8 68 18 104/60 07/03 1400 98.8 68 18 104/60 98 Room Air 07/03 1200 99.1 66 18 94/60 07/03 1200 99.1 66 18 94/60 95 Room Air 07/03 0800 97.9 80 18 120/80 97 Room Air 07/03 0000 98.8 82 20 112/70 / 0000 97 / 0000 98.8 82 20 112/70 97 Nasal Room Air Cannula 07/02 2127 97.8 68 22 120/70 Intake & Output 07/03 1600 07/03 0800 07/03 0000 Intake Total 400 100 500 Output Total 800 1000 Balance -400 100 -500 Intake, Oral 400 100 500 Output, Urine 800 1000 Physical Exam General Appearance: Alert, Oriented X3, Cooperative, No Acute Distress Skin: No Rashes, No Breakdown, No Significant Lesion HEENT: Atraumatic, PERRLA, EOMI Neck: Supple, No JVD, No thryomegaly Cardiovascular: Regular Rate, Normal S1, Normal S2, No Murmurs Lungs: Clear to Auscultation, Normal Air Movement Abdomen: Normal Bowel Sounds, Soft, No Tenderness Extremities: No Edema Current Medications: Current Medications Sig/Louie Start time Last Medication Dose Route Stop Time Status Admin Acetaminophen 650 MG Q6P PRN 06/29 2345 AC 07/01 PO 0833 Baclofen 10 MG Q6PRN PRN 07/01 1215 AC PO Cyanocobalamin 1,000 MCG DAILY 06/30 1752 AC 07/03 PO 1008 Dicyclomine HCl 20 MG 4 TIMES/DAY PRN 07/01 1215 AC PO Enoxaparin Sodium 40 MG DAILY 06/30 1000 AC 07/03 SC 1008 Escitalopram Oxalate 10 MG DAILY 07/02 1258 AC 07/03 PO 1008 Folic Acid 1 MG DAILY 06/30 1000 AC 07/03 PO 1008 Ibuprofen 600 MG Q6P PRN 07/01 1215 AC PO Lorazepam 1 MG ONE ONE 07/04 1000 AC PO 07/04 1001 Lorazepam 1 MG BID 07/03 2200 CAN PO Lorazepam 1 MG Q8 07/03 1400 AC 07/03 PO 07/04 0000 1435 Lorazepam 1 MG Q8 07/03 0600 DC PO 07/03 2201 Lorazepam 1 MG Q6 07/02 1200 DC 07/03 PO 07/03 0601 0644 Lorazepam 0 Q1P PRN 06/29 2245 AC 07/02 IV 0811 Multivitamins 1 TAB DAILY 06/30 1056 AC 07/03 PO 1008 Ramelteon 8 MG ONCE ONE 07/03 0130 DC 07/03 PO 07/03 0131 0131 Thiamine HCl 100 MG DAILY 06/30 1000 AC 07/03 PO 1008 Last 24 Hrs of Lab/Markus Results Last 24 Hrs of Labs/Mics: Laboratory Tests 07/03/17 1615: Urine Color YEL, Urine Clarity HAZY H, Urine pH 6.5, Ur Specific [place] 1.010, Urine Protein NEG, Urine Ketones NEG, Urine Nitrite POS H, Urine Bilirubin NEG, Urine Urobilinogen 0.2, Ur Leukocyte Esterase LARGE H, Ur Microscopic SEDIMENT EXAMINED, Urine RBC 3-5, Urine WBC > 75 H, Ur Epithelial Cells MOD H, Urine Bacteria PACKD H, Urine Hemoglobin TRACE-INTACT, Urine Glucose NEG Microbiology 07/03 1615 URINE ROUT: Urine Culture - RECD Assessment/Plan Assessment: Ms Ely is a 32 yo F with a PMH significant for opioid use disorder, alcohol use disorder, depression, and admission for alcohol and opiate withdrawal. Was found to be extremely agitated over night and attempted to leave the hospital, was transferred to ICU for closer monitoring and possible IV Ativan drip. Problem list: #AUD #Depression #h/o SWTAHI Plan: * Continue Ativan taper upon discharge * Patient has an IOP appointment July 05 at 9:30 AM * Psych and Social work recommendations appreciated * Continue Lexapro * Advise patient to be reevaluated by a certified provider as outpatient Suboxone for history of opiate use disorder. Her last follow-up with Suboxone clinic was 1.5 years ago in [place]. * Patient stable for GM #DVT prophylaxis: Subcutaneous Lovenox #Code: Full Problem List: 1. Alcohol use disorder 2. ETOH abuse Pain Ratin Pain Location: NA Pain Goal: Remain pain free Pain Plan: NA Tomorrow's Labs & Rationales: None
[2017-07-04 07:34] VITALS: BP 112/62
[2017-07-04 08:00] VITALS: BP 110/70
--- NOTE | 2017-07-04 09:47 | PN- Housestaff ---
Fransisco ROWAN,[facility] 07/04/17 0946: Subjective Follow-up For: etoh withdrawal Subjective: No acute events overnight. Patient still has hand shaking. Would like to be dc. Review of Systems Constitutional: Reports: no symptoms. Cardiovascular: Reports: no symptoms. Respiratory: Reports: no symptoms. Gastrointestinal: Reports: no symptoms. Genitourinary: Reports: no symptoms. Musculoskeletal: Reports: see HPI (hand shaking). Objective Last 24 Hrs of Vital Signs/I&O Vital Signs Date Time Temp Pulse Resp B/P B/P Pulse O2 O2 Flow FiO2 Mean Ox Delivery Rate 07/04 799 97.4 75 20 110/70 07/04 0734 98.0 87 18 112/62 97 07/03 2311 98.1 82 18 114/65 97 Room Air Intake & Output 07/04 1600 07/04 0800 07/04 0000 Intake Total 450 400 Output Total 300 Balance 450 100 Intake, Oral 450 400 Output, Urine 300 Physical Exam General Appearance: Alert, Oriented X3, Cooperative, No Acute Distress Skin Temp/Moisture Exam: Warm/Dry Cardiovascular: Regular Rate, Normal S1, Normal S2 Lungs: Clear to Auscultation, Normal Air Movement Abdomen: Normal Bowel Sounds, Soft, No Tenderness Extremities: resting hand tremors Vascular: 2+ radial pulses Current Medications: Current Medications Sig/Louie Start time Last Medication Dose Route Stop Time Status Admin Acetaminophen 650 MG Q6P PRN 06/29 2345 DCD 07/01 PO 0833 Baclofen 10 MG Q6PRN PRN 07/01 1215 DCD PO Cyanocobalamin 1,000 MCG DAILY 06/30 1752 DCD 07/04 PO 0947 Dicyclomine HCl 20 MG 4 TIMES/DAY PRN 07/01 1215 DCD PO Enoxaparin Sodium 40 MG DAILY 06/30 1000 DCD 07/04 SC 0949 Escitalopram Oxalate 10 MG DAILY 07/02 1258 DCD 07/04 PO 0947 Folic Acid 1 MG DAILY 06/30 1000 DCD 07/04 PO 0947 Ibuprofen 600 MG .STK-MED ONE 07/04 0259 DC PO 07/04 0300 Ibuprofen 600 MG Q6P PRN 07/01 1215 DCD 07/04 PO 0300 Lorazepam 1 MG ONE ONE 07/04 1000 DC 07/04 PO 07/04 1001 0947 Lorazepam 1 MG Q8 07/03 1400 DC 07/03 PO 07/04 0000 2124 Lorazepam 0 Q1P PRN 06/29 2245 DCD 07/02 IV 0811 Multivitamins 1 TAB DAILY 06/30 1056 DCD 07/04 PO 0947 Nicotine 14 MG DAILY 07/03 1757 DCD 07/04 TOP 0948 Thiamine HCl 100 MG DAILY 06/30 1000 DCD 07/04 PO 0947 Assessment/Plan Assessment: Ms Ely is a 32 yo F with a PMH significant for opioid use disorder, alcohol use disorder, depression, and admission for alcohol and opiate withdrawal. Was found to be extremely agitated over night and attempted to leave the hospital, was transferred to ICU for closer monitoring and possible IV Ativan drip. Problem list: #AUD #Depression #h/o SWATHI #hx of recurrent UTI Plan: * Continue Ativan taper upon discharge * Patient has an IOP appointment July 05 at 9:30 AM * Psych and Social work recommendations appreciated * Continue Lexapro * Advise patient to be reevaluated by a certified provider as outpatient Suboxone for history of opiate use disorder. Her last follow-up with Suboxone clinic was 1.5 years ago in [place]. * Pt has positive UA and Ucx growing gram neg rods. Pt has increased urinary freqiency. Currently asymptomatic. Pt given cipro 250mg bid x 3 days and follow up with PCP. * Patient stable for discharge #DVT prophylaxis: Subcutaneous Lovenox #Code: Full Problem List: 1. ETOH abuse Pain Ratin Pain Location: none Pain Goal: Pain 4 or less Pain Plan: pain pathway Tomorrow's Labs & Rationales: Ludwin Trujillo MD 07/04/171955: Attending MD Review Statement Attending Statement Attending MD Statement: examined this patient, discuss w/resident/PA/DIRECTOR MARKET RESEARCH, agreed w/resident/PA/DIRECTOR MARKET RESEARCH, reviewed EMR data (avail), discussed with nursing, amended to note Attending Assessment/Plan: The patient was seen and discussed with house staff. OK to discharge to home today. Note- urine was growing GNR and house staff called prescription for Cipro for patient and she will follow-up with her PCP. ICU house staff states the patient did have mild symptoms of UTI.
[2017-07-04] MEDS ORDERED: DAILY MULTIPLE1 EACH PO (11:13)
--- NOTE | 2017-07-04 15:01 | Event Note ---
Event Note Event Note: Urine culture growing gram neg rods. Called and spoke to patient. Complaining of urinary frequency will call a course of cipro 250mg bid x 3 days in to her pharmacy. Advised to follow up with her primary care physician.
--- NOTE | 2017-07-06 15:33 | Discharge Summary ---
Visit Information Visit Dates Admission Date: 06/29/17 Discharge Date: 07/04/17 Hospital Course Course Attending Physician: Kerwin ROWAN,Tiana Tompkins Primary Care Physician: Navya Noel MD Consulting Request: Consulting Specialty: Psychiatry Hospital Course: This is a 32-year-old lady, w/PMH significant for opioid use disorder, alcohol use disorder, depression who was brought to the hospital after found intoxicated. Admitted for alcohol detox. Denied SI/HI. At the time of [id number] 97.2 pulse rate 82, respiration 20, blood pressure 129/82, pulse ox 92% on room air. On examination, she was comfortable however she was very anxious and had tremors likely from alcohol withdrawal. Pertinent lab findings: WBC 4.5 (leukopenia), hemoglobin 13.6, MCV 102 ( macrocytosis), platelets 315. Electrolytes-sodium 146, potassium 4.4, anion gap 17 (likely from alcohol), BUN 12, serum creatinine 0.5. AST 110, ALT 47 ( consistent with alcohol use, deficiency of PPO4), alkaline phosphatase 97, albumin 4.5, INR was not checked. Urine test was negative. Urine toxicology did not reveal any opiates, methadone, benzodiazepines, cocaine , cannabis. She did have elevated levels of serum alcohol 585 MG/DL. The following problems were addressed during the course of her hospital stay: #ALCOHOL WITHDRAWAL: The patient was maintained on CIWA monitoring and ativan taper along with MVA, Folate, B12, Thiamin. Was evaluated by psych and social. Had intermittent episodes of agitation. On day 2 of hospital stay, dressed up and wanted to leave the hospital was extremely tremulous with visible tremors and crying profusely. She wanted to walk out the hospital to find her sister, in a blizzard-like weather condition. She was evaluated but psych and medical team who believed that she lacked capacity and could not leave AMA. Restrains and prn Haldol ordered. The patient she became agitated overnight and was transferred to the ICU. She was monitored in the ICU closely, she improved markedly and was logical. The patient was reevaluated by psych and attending and expressed understanding that she had to complete the course of her treatment. The patient was discharged with 2 tabs of ativan 1 mg to complete Ativan taper. She also gave permission to the attending to update her mother. Psych WEIGHT SHIFTER arranged IOP appointment as outpatient. Attending updated patient and her mother. #History of Suboxone use: Has history of opiate use disorder, states that she was on Suboxone. Her last follow-up with Suboxone clinic was 1.5 years ago in [place]. Should be reevaluated by a certified provider as outpatient. Was seen by psych inpatient who recommended a medication regimen to control her withdrawal symptoms. #Abnormal EKG:EKG from Jun 30 revealed possible AV block prolonged QTC however with lots of and patient was asymptomatic. Repeat EKG shows a sinus rhythm at 77 , no significant change or abnormalities noted compared to prior EKG done on 06/2017. QTC 440. #Macrocytic anemia: Hemoglobin 11.9, MCV 100.5. Likely secondary to alcohol use. Was started on vitamin B12 and folate supplement as inpatient. Vitamin B12 checked 389, folic acid 7.5. The patient was discharged on multivitamin. #Depression:Denied SI or HI. Was evaluated by Psych and per their recommendations was maintained on Escitalopram 10 mg daily. #DVT prophylaxis Received subcutaneous Lovenox #CODE STATUS: Full code Allergies: Coded Allergies: sulfamethoxazole (From BACTRIM) (Intermediate, red rash 06/29/17) trimethoprim (From BACTRIM) (Intermediate, red rash 06/29/17) Pertinent Lab Results: Laboratory Tests 07/03/17 1615: Urine Color YEL, Urine Clarity HAZY H, Urine pH 6.5, Ur Specific [place] 1.010, Urine Protein NEG, Urine Ketones NEG, Urine Nitrite POS H, Urine Bilirubin NEG, Urine Urobilinogen 0.2, Ur Leukocyte Esterase LARGE H, Ur Microscopic SEDIMENT EXAMINED, Urine RBC 3-5, Urine WBC > 75 H, Ur Epithelial Cells MOD H, Urine Bacteria PACKD H, Urine Hemoglobin TRACE-INTACT, Urine Glucose NEG Disposition Summary Disposition Principal Diagnosis: Alcohol withdrawal Additional Diagnosis: Substance use disorder Discharge Disposition: home or self care Discharge Instructions General Discharge Information Code Status: Full Code Patient's Diet: Regular Patient's Activity: As tolerated Follow-Up Instructions/Appts: Please follow up with your Primary care doctor within two weeks of discharge You have an appointment at the Intensive Outpatient Program (IOP) on 07/05/17, at 9:30 AM, at [address] [place] [address], . Please bring photo ID and insurance card. Medications at Discharge Discharge Medications: Stop taking the following medications: Nitrofurantoin (Macrodantin) 50 MG CAPSULE ORAL DAILY Continue taking these medications: Escitalopram Oxalate (Escitalopram Oxalate) 10 MG TABLET 1 Tablet ORAL DAILY Qty = 30 Comments: Last Taken:07/04/17 Time:9:47A.M Start taking the following new medications: LORazepam (Ativan) 1 MG TAB 1 Milligram ORAL DAILY Qty = 2 No Refills Instructions: TAKE 1 TAB WEDNESDAY EVENING TAKE 1 TAB WEDNESDAY MORNING Comments: Last Taken:07/04/17 Time:9:47A.M Multivitamin (Daily Multiple Vitamin) 1 EACH TABLET 1 Tablet ORAL DAILY Qty = 30 No Refills Comments: Last Taken:07/04/17 Time:9:47A.M Copies To: Bert ROWAN,Navya
== END 2017-07-04 12:20 | DRG 773 ==
LOC: ERH 17:34 → ERHI 06-29 21:19 → 2NB 06-29 21:19 → ENRESERV 06-29 23:08 → 2NB 06-29 23:22 → CRI 07-01 22:48 → ENTRNSPT 07-03 15:47 → CMPTRNSPT 07-03 17:05 → 2NB 07-03 17:06 → ENTRNSPT 07-04 12:13 → EDTRNSPTSTS 07-04 12:17 → EDTRNSPT 07-04 12:17 → 2NB 07-04 12:20 → CMPTRNSPT 07-04 12:26
PROVIDERS: Internal Medicine; Internal Medicine Endocrinology, Diabetes & Metabolism; Physician Assistant Medical
DX: F10.239 Alcohol dependence with withdrawal, unspecified (principal); F10.229 Alcohol dependence with intoxication, unspecified; Y90.8 Blood alcohol level of 240 mg/100 ml or more; F32.9 Major depressive disorder, single episode, unspecified; F41.9 Anxiety disorder, unspecified; F13.20 Sedative, hypnotic or anxiolytic dependence, uncomplicated; Z91.14 Patient's other noncompliance with medication regimen; F17.210 Nicotine dependence, cigarettes, uncomplicated; D75.89 Other specified diseases of blood and blood-forming organs; D53.9 Nutritional anemia, unspecified; F11.21 Opioid dependence, in remission; N39.0 Urinary tract infection, site not specified
CPT/HCPCS: 2NBSP; CCU; 36415; 80307; 81001; 81025; 82436; 87086; 93005; 93010; G0463; G0480; J1650; J3490